=== PATIENT | female | born 1990 | race Caucasian/White ===

== ENCOUNTER 2018-01-07 00:36 | Emergency (ER) | payer MEDICARE, MEDICAID ==
[~2018-01-07] VITALS: Ht 157.5 cm; Wt 104.3 kg
[2018-01-07] MEDS ORDERED: CYMBALTA30 MG (01:00)
[2018-01-07] MEDS ORDERED: RISPERDAL 1 MG T1 MG (01:05)
[2018-01-07] MEDS ORDERED: OTEZLA30 MG (01:05)
[2018-01-07] MEDS ORDERED: SYNTHROID137 MC1 PO (01:06)
[2018-01-07 01:12] LABS: ABSOLUTE EOSINOPHILS 0.2 thou/uL (0.0-0.7); ABSOLUTE LYMPHOCYTES 3.5 thou/uL (0.8-5.3); ABSOLUTE MONOCYTES 0.5 thou/uL (0.0-1.2); ABSOLUTE NEUTROPHILS 3.8 thou/uL (1.6-8.1); BASOPHILS 0.4 %; HEMOGLOBIN 13.3 gm/dL (12.0-15.0); LYMPHOCYTES 43.5 %; MCH 30.2 pg (26.0-34.0); MCHC 33.3 g/dL (28.0-37.0); MCV 90.8 fL (80.0-100.0); MONOCYTES 6.8 %; MPV 7.5 fl. (7.2-11.1); NUCLEATED RBCS 0 /100WBC; PLATELET COUNT* 270 thou/uL (150-400); POLYS 47.3 %; RBC 4.41 mil/uL (4.20-5.00)
[2018-01-07 01:29] LABS: CALCIUM 9.1 mg/dL (8.5-10.1); CREATININE 1.1 mg/dL (0.6-1.3); POTASSIUM 3.7 mmol/L (3.5-5.1)
[2018-01-07 01:33] LABS: ALBUMIN 3.3 g/dL (3.4-5.0); TOTAL BILIRUBIN 0.2 mg/dL (<0.1-1.0); TOTAL PROTEIN 7.4 g/dL (6.4-8.2)
[2018-01-07 01:48] VITALS: BP 112/74
== END 2018-01-07 01:48 | disposition home or self-care (01) ==
LOC: M.ERS 00:36
PROVIDERS: Family Medicine
DX: R11.2 Nausea with vomiting, unspecified (principal); R53.1 Weakness; R19.7 Diarrhea, unspecified; E03.9 Hypothyroidism, unspecified; F32.9 Major depressive disorder, single episode, unspecified; F41.9 Anxiety disorder, unspecified; G43.909 Migraine, unspecified, not intractable, without status migrainosus; L40.9 Psoriasis, unspecified; Z88.5 Allergy status to narcotic agent; Z88.6 Allergy status to analgesic agent

== ENCOUNTER 2018-02-03 13:47 | Emergency (ER) | payer MEDICARE, MEDICAID ==
[~2018-02-03] VITALS: Ht 165.1 cm; Wt 90.7 kg
[~2018-02-03 13:47] MED LIST: CYMBALTA30 MG; OTEZLA30 MG; RISPERDAL 1 MG T1 MG; SYNTHROID137 MC1 PO
[2018-02-03] MEDS ORDERED: PERCOCET PO (15:26)
[2018-02-03] MEDS ORDERED: NABUMETONE 750750 M1 PO (15:26)
[2018-02-03] MEDS ORDERED: ZOFRAN ODT4 MG PO (15:26)
[2018-02-03 15:42] VITALS: BP 118/72
== END 2018-02-03 15:42 | disposition home or self-care (01) ==
LOC: M.ERS 13:47
DX: S92.354A Nondisplaced fracture of fifth metatarsal bone, right foot, initial encounter for closed fracture (principal); E03.9 Hypothyroidism, unspecified; F32.9 Major depressive disorder, single episode, unspecified; F41.9 Anxiety disorder, unspecified; G43.909 Migraine, unspecified, not intractable, without status migrainosus; L40.9 Psoriasis, unspecified; Z88.5 Allergy status to narcotic agent; W10.8XXA Fall (on) (from) other stairs and steps, initial encounter; Y93.89 Activity, other specified; Y92.89 Other specified places as the place of occurrence of the external cause; Y99.8 Other external cause status

== ENCOUNTER 2018-05-04 16:22 | Emergency (ER) | payer OTHER, MEDICAID ==
[~2018-05-04] VITALS: Ht 167.6 cm; Wt 116.6 kg
[~2018-05-04 16:22] MED LIST changes: +NABUMETONE 750750 M1 PO; +PERCOCET PO; +ZOFRAN ODT4 MG PO
[2018-05-04 16:45] LABS: ABSOLUTE EOSINOPHILS 0.2 thou/uL (0.0-0.7); ABSOLUTE LYMPHOCYTES 2.4 thou/uL (0.8-5.3); ABSOLUTE MONOCYTES 0.6 thou/uL (0.0-1.2); ABSOLUTE NEUTROPHILS 8.8 thou/uL (1.6-8.1); BASOPHILS 0.3 %; EOSINOPHILS 1.3 %; HEMATOCRIT 45.5 % (37.0-47.0); HEMOGLOBIN 15.1 gm/dL (12.0-15.0); LYMPHOCYTES 20.1 %; MCH 29.5 pg (26.0-34.0); MCHC 33.3 g/dL (28.0-37.0); MCV 88.6 fL (80.0-100.0); MONOCYTES 5.3 %; MPV 7.6 fl. (7.2-11.1); NUCLEATED RBCS 0 /100WBC; PLATELET COUNT* 294 thou/uL (150-400); RBC 5.13 mil/uL (4.20-5.00); RDW-CV 12.9 % (10.5-14.5); WBC 12.1 thou/uL (4.0-11.0)
[2018-05-04 16:55] LABS: POTASSIUM 3.7 mmol/L (3.5-5.1)
[2018-05-04 16:59] LABS: ALBUMIN 3.8 g/dL (3.4-5.0); TOTAL BILIRUBIN 0.3 mg/dL (<0.1-1.0); TOTAL PROTEIN 8.3 g/dL (6.4-8.2)
[2018-05-04 18:49] LABS: URINE BILIRUBIN NEGATIVE (Negative); URINE BLOOD TRACE (Negative); URINE CLARITY CLEAR; URINE COLOR YELLOW; URINE GLUCOSE-RANDOM NEGATIVE (Negative); URINE KETONES NEGATIVE (Negative); URINE LEUKOCYTES-REFLEX NEGATIVE (Negative); URINE NITRITE-REFLEX NEGATIVE (Negative); URINE PROTEIN NEGATIVE (Negative); URINE UROBILINOGEN 0.2 E.U./dl (0.2-1.0)
[2018-05-04] MEDS ORDERED: CIPROFLOXACIN500 M1 PO (18:59)
[2018-05-04] MEDS ORDERED: ZOFRAN4 MG PO (18:59)
[2018-05-04] MEDS ORDERED: BENTYL 20 MG TA20 M1 PO (18:59)
[2018-05-04] MEDS ORDERED: FLAGYL500 M1 PO (18:59)
[2018-05-04 21:30] VITALS: BP 100/58
--- NOTE | 2018-05-05 09:59 | EKG ---
[place] [address] ELECTROCARDIOGRAM REPORT Name: SHERON JOINER Room: [facility]#: [id number] Admission: 05/04/18 Attend Phys: Discharge: 05/04/18 Date of : 88 Report #: [id number] THIS REPORT FOR: //name// [facility] ED Test Date: 2018-05-04 Test Time: 16:33:53 Pat Name: SHERON MARISEL Department: Room: Gender: F [employer]: MELISSA : 1990 Requested By: Iraiad Fonseca Order Number: [id number] Donnie MD: Brad Silva Measurements Intervals [place] Rate: 126 P: 26 MT: 127 QRS: 8 QRSD: 73 T: 8 QT: 318 QTc: 461 Interpretive Statements Sinus tachycardia Borderline T abnormalities, anterior leads Baseline wander in lead(s) V6 No previous ECG available for comparison Electronically Signed On 05-05-2018 9:59:36 LINUX SERVER ADMINISTRATOR by Brad Silva [email or web address] <ELECTRONICALLY SIGNED> By: Brad Silva MD, [facility] 05/05/18 [id number] Brad Silva MD, FAC /EPI
== END 2018-05-04 21:36 | disposition home or self-care (01) ==
LOC: M.ERS 16:22
PROVIDERS: Nurse Practitioner Family
DX: I88.0 Nonspecific mesenteric lymphadenitis (principal); R11.2 Nausea with vomiting, unspecified; E03.9 Hypothyroidism, unspecified; F32.9 Major depressive disorder, single episode, unspecified; G43.909 Migraine, unspecified, not intractable, without status migrainosus; L40.9 Psoriasis, unspecified; Z88.5 Allergy status to narcotic agent

== ENCOUNTER 2018-09-13 12:08 | Emergency (ER) | payer OTHER, MEDICAID ==
[~2018-09-13] VITALS: Ht 167.6 cm; Wt 117.9 kg
[~2018-09-13 12:08] MED LIST changes: +BENTYL 20 MG TA20 M1 PO; +CIPROFLOXACIN500 M1 PO; -CYMBALTA30 MG; +CYMBALTA30 MG PO; +FLAGYL500 M1 PO; -SYNTHROID137 MC1 PO; +SYNTHROID75 MCG PO; +ZOFRAN4 MG PO
[2018-09-13] MEDS ORDERED: TOPAMAX50 MG PO ×2 (12:19→12:20)
[2018-09-13] MEDS ORDERED: MOBIC7.5 MG PO (12:20)
[2018-09-13] MEDS ORDERED: CYCLOBENZAPRINE5 MG PO (12:20)
[2018-09-13] MEDS ORDERED: OMEPRAZOLE 20 M20 M1 PO (12:20)
[2018-09-13] MEDS ORDERED: AMOXICILLIN 50500 MG PO (12:21)
[2018-09-13] MEDS ORDERED: GIANVI 3 MG-0.1 EACH PO (12:21)
[2018-09-13 12:40] LABS: ABSOLUTE BASOPHILS 0.1 thou/uL (0.0-0.2); ABSOLUTE EOSINOPHILS 0.1 thou/uL (0.0-0.7); ABSOLUTE LYMPHOCYTES 3.7 thou/uL (0.8-5.3); ABSOLUTE MONOCYTES 0.5 thou/uL (0.0-1.2); ABSOLUTE NEUTROPHILS 5.2 thou/uL (1.6-8.1); BASOPHILS 0.5 %; EOSINOPHILS 1.3 %; HEMATOCRIT 40.8 % (37.0-47.0); HEMOGLOBIN 14.1 gm/dL (12.0-15.0); LYMPHOCYTES 38.9 %; MCH 30.5 pg (26.0-34.0); MCHC 34.5 g/dL (28.0-37.0); MCV 88.4 fL (80.0-100.0); MONOCYTES 4.9 %; MPV 7.8 fl. (7.2-11.1); NUCLEATED RBCS 0 /100WBC; PLATELET COUNT* 324 thou/uL (150-400); POLYS 54.4 %; RBC 4.62 mil/uL (4.20-5.00); RDW-CV 13.5 % (10.5-14.5); WBC 9.6 thou/uL (4.0-11.0)
[2018-09-13 12:42] LABS: URINE BILIRUBIN NEGATIVE (Negative); URINE BLOOD 2+ (Negative); URINE CLARITY CLEAR; URINE COLOR YELLOW; URINE GLUCOSE-RANDOM NEGATIVE (Negative); URINE KETONES NEGATIVE (Negative); URINE LEUKOCYTES-REFLEX NEGATIVE (Negative); URINE NITRITE-REFLEX NEGATIVE (Negative); URINE PROTEIN NEGATIVE (Negative); URINE SPECIFIC GRAVITY 1.015 (1.005-1.030); URINE UROBILINOGEN 0.2 E.U./dl (0.2-1.0)
[2018-09-13 12:49] LABS: SQUAMOUS >10 Many /LPF (0-3)
[2018-09-13 12:50] LABS: BACTERIA-REFLEX 1-9 Few /HPF (None Seen); MUCUS 4-6 Moderate strn/LPF (None Seen); URINE RBC 3-10 Few /HPF (0-2); URINE WBC-REFLEX 0-5 Rare /HPF (0-5)
[2018-09-13 12:51] LABS: CASTS None Seen /LPF (None Seen); CRYSTALS None Seen /LPF (None Seen)
[2018-09-13 12:59] LABS: ALBUMIN 3.4 g/dL (3.4-5.0); CALCIUM 9.4 mg/dL (8.5-10.1); CREATININE 0.9 mg/dL (0.6-1.3); POTASSIUM 3.7 mmol/L (3.5-5.1); TOTAL BILIRUBIN 0.4 mg/dL (<0.1-1.0); TOTAL PROTEIN 7.8 g/dL (6.4-8.2)
[2018-09-13] MEDS ORDERED: NAPROSYN500 MG PO (13:47)
[2018-09-13 13:54] VITALS: BP 135/82
== END 2018-09-13 13:55 | disposition home or self-care (01) ==
LOC: M.ERS 12:08
PROVIDERS: Physician Assistant
DX: N89.8 Other specified noninflammatory disorders of vagina (principal); R10.2 Pelvic and perineal pain; E03.9 Hypothyroidism, unspecified; F32.9 Major depressive disorder, single episode, unspecified; F41.9 Anxiety disorder, unspecified; G43.909 Migraine, unspecified, not intractable, without status migrainosus; Z88.5 Allergy status to narcotic agent; Z88.6 Allergy status to analgesic agent